=== PATIENT | male | born 1965 | race Caucasian/White ===

== ENCOUNTER 2017-03-05 11:59 | Inpatient (IN) | payer OTHER ==
[2017-03-05] VITALS (590 sets, daily range): BP systolic 114–124; BP diastolic 74–80; PULSE 49–128; TEMP 97–98; O2SAT 90–100
[~2017-03-05] VITALS: Ht 177.8 cm; Wt 91.2 kg
[2017-03-06] VITALS (755 sets, daily range): BP systolic 104–125; BP diastolic 63–81; PULSE 54–82; TEMP 97.1–98.1; O2SAT 91–100
[2017-03-06 06:05] LABS: BASO % 0.5 % (0.0-2.0); EOS # 0.1 (0.0-0.7); GRAN # 6.4 (1.4-6.5); GRAN % 76.8 % (42.2-75.2); HEMATOCRIT 41.1 % (42.0-52.0); HEMOGLOBIN 14.1 g/dl (13.5-18.0); LYMPH # 1.1 (1.2-3.4); LYMPH % 13.6 % (20.0-51.0); MEAN CELL VOLUME 89 fl (80.0-100.0); MEAN CORPUSCULAR HEMOGLOBIN 31 pg (27.0-31.0); MEAN CORPUSCULAR HGB CONC 34 g/dl (33.0-37.0); MEAN PLATELET VOLUME 9.2 fl (7.4-10.4); MONO # 0.7 (0.1-0.6); MONO % 7.9 % (1.7-9.3); PLATELET COUNT 161 K/mm3 (130-400); RED BLOOD COUNT 4.61 M/mm3 (4.20-5.60); REDCELL DISTRIBUTION WIDTH-CV 12.6 % (11.5-14.5); WHITE BLOOD COUNT 8.3 K/mm3 (4.8-10.8)
[2017-03-06 06:20] LABS: CREATININE, serum 0.91 mg/dL (0.66-1.25); POTASSIUM 3.9 mmol/L (3.4-5.0)
[2017-03-06 06:35] LABS: TROPONIN-I 0.245 ng/mL (0.000-0.034)
[2017-03-06 12:14] LABS: INR 1.1 (0.8-3.0); PROTHROMBIN TIME 11.9 SECONDS (9.7-12.8)
[2017-03-06] MEDS ORDERED: LIPITOR 40MG TA40 MG PO (14:53)
[2017-03-06] MEDS ORDERED: ASPI325T6 PO (14:53)
[2017-03-06] MEDS ORDERED: LOPRESSOR 225 MG/TAB PO (14:53)
== END 2017-03-06 15:15 | disposition short-term general hospital (02) | DRG 272 ==
LOC: IMCU 11:59 → ICU 13:51
PROVIDERS: Family Medicine; Internal Medicine Interventional Cardiology; Physician Assistant
PROC: 4A023N7 Measurement of Cardiac Sampling and Pressure, Left Heart, Percutaneous Approach (ICD-10-PCS; principal; 2017-03-05)
PROC: 5A02210 Assistance with Cardiac Output using Balloon Pump, Continuous (ICD-10-PCS; 2017-03-05)
PROC: B2111ZZ Fluoroscopy of Multiple Coronary Arteries using Low Osmolar Contrast (ICD-10-PCS; 2017-03-05)
DX: I21.4 Non-ST elevation (NSTEMI) myocardial infarction (principal); M79.662 Pain in left lower leg; I25.10 Atherosclerotic heart disease of native coronary artery without angina pectoris
CPT/HCPCS: 99223-AI; 99233-AI; 99239; C1769; C1887; C1894; J1327; J1644; J1650; J2250; J2405; J3010; Q9967

== ENCOUNTER 2019-07-01 13:00 | Outpatient (RCR) | payer OTHER ==
[2019-05-20 15:39] LABS: HEMATOCRIT 39.6 % (42.0-52.0); HEMOGLOBIN 12.7 g/dl (13.5-18.0); MEAN CELL VOLUME 90 fl (80.0-100.0); MEAN CORPUSCULAR HEMOGLOBIN 29 pg (27.0-31.0); MEAN CORPUSCULAR HGB CONC 32 g/dl (33.0-37.0); MEAN PLATELET VOLUME 8.3 fl (7.4-10.4); PLATELET COUNT 218 K/mm3 (130-400); REDCELL DISTRIBUTION WIDTH-CV 13.2 % (11.5-14.5)
[2019-05-20 15:48] LABS: ALBUMIN 3.9 gm/dL (3.5-5.0); BILIRUBIN,TOTAL 0.5 mg/dL (0.0-1.0); CREATININE, serum 0.81 (0.66-1.25); TOTAL PROTEIN 7.7 gm/dL (6.4-8.2)
[2019-05-20 16:34] VITALS: BP 105/64; PULSE 61; TEMP 98.5
[2019-05-20 16:44] VITALS: BP 118/79; PULSE 66
[2019-05-20 16:55] VITALS: BP 114/61; PULSE 61
--- NOTE | 2019-05-20 17:00 | NUR ---
Report to Julissa Infante RN who assumed care at this time.
[2019-05-20 17:05] VITALS: BP 114/61; PULSE 64
[2019-05-20 17:15] VITALS: BP 106/64; PULSE 61; TEMP 98.8
[2019-06-03 15:13] LABS: HEMATOCRIT 39.6 % (42.0-52.0); HEMOGLOBIN 12.8 g/dl (13.5-18.0); MEAN CELL VOLUME 90 fl (80.0-100.0); MEAN CORPUSCULAR HEMOGLOBIN 29 pg (27.0-31.0); MEAN CORPUSCULAR HGB CONC 32 g/dl (33.0-37.0); MEAN PLATELET VOLUME 8.5 fl (7.4-10.4); PLATELET COUNT 218 K/mm3 (130-400); RED BLOOD COUNT 4.42 M/mm3 (4.20-5.60); REDCELL DISTRIBUTION WIDTH-CV 13.2 % (11.5-14.5)
[2019-06-03 15:20] LABS: ALBUMIN 3.9 gm/dL (3.5-5.0); BILIRUBIN,TOTAL 0.8 mg/dL (0.0-1.0); CALCIUM 8.8 mg/dL (8.4-10.2); CREATININE, serum 0.77 (0.66-1.25); POTASSIUM 3.9 mmol/L (3.4-5.0); TOTAL PROTEIN 7.9 gm/dL (6.4-8.2)
[2019-06-03 16:00] VITALS: BP 110/64; PULSE 80; TEMP 99.4
[2019-06-03 16:14] VITALS: BP 102/61; PULSE 82
[2019-06-03 16:24] VITALS: BP 108/65; PULSE 83
[2019-06-03 16:35] VITALS: BP 95/62; PULSE 78
[~2019-07-01] VITALS: Ht 177.8 cm; Wt 81.2 kg
[~2019-07-01 13:00] MED LIST: ASPI325T6 PO; ASPIRIN E.C. 8181 MG PO; FOLIC ACID0.4 MG PO; IRON TABLETS325 MG PO; LIALDA 1.2 GM1.2 GM PO; LIPITOR 40MG TA40 MG PO; LIPITOR 80MG80 MG PO; LOPRESSOR 225 MG/TAB PO; PHARMASSURE ZIN50 MG PO; TOPROL XL 25MG25 MG PO
[2019-07-01 13:31] LABS: ALBUMIN 3.5 gm/dL (3.5-5.0); BILIRUBIN,TOTAL 0.6 mg/dL (0.0-1.0); CALCIUM 8.7 mg/dL (8.4-10.2); CREATININE, serum 0.71 (0.66-1.25); HEMATOCRIT 37.1 % (42.0-52.0); HEMOGLOBIN 12.1 g/dl (13.5-18.0); MEAN CELL VOLUME 89 fl (80.0-100.0); MEAN CORPUSCULAR HEMOGLOBIN 29 pg (27.0-31.0); MEAN CORPUSCULAR HGB CONC 33 g/dl (33.0-37.0); MEAN PLATELET VOLUME 8.4 fl (7.4-10.4); PLATELET COUNT 222 K/mm3 (130-400); RED BLOOD COUNT 4.15 M/mm3 (4.20-5.60); REDCELL DISTRIBUTION WIDTH-CV 14.6 % (11.5-14.5); TOTAL PROTEIN 6.9 gm/dL (6.4-8.2)
[2019-07-01 14:34] VITALS: BP 92/55; PULSE 65; TEMP 98.3
[2019-07-01 15:07] VITALS: BP 93/51; PULSE 63
== END 2019-07-01 15:39 | disposition home or self-care (01) ==
LOC: EUO 13:00
PROVIDERS: Internal Medicine Gastroenterology
DX: K51.90 Ulcerative colitis, unspecified, without complications (principal); Z79.899 Other long term (current) drug therapy
CPT/HCPCS: J1200; J2920; J7050

== ENCOUNTER 2019-08-26 12:49 | Outpatient (CLI) | payer OTHER ==
[~2019-08-26] VITALS: Ht 177.8 cm; Wt 75.8 kg
[2019-08-26] MEDS ORDERED: PREDNISONE 5MG5 MG PO (13:18)
[2019-08-26 13:19] VITALS: BP 107/66; PULSE 67; TEMP 97.6
[2019-08-26 13:19] LABS: HEMATOCRIT 42.5 % (42.0-52.0); HEMOGLOBIN 13.6 g/dl (13.5-18.0); MEAN CELL VOLUME 92 fl (80.0-100.0); MEAN CORPUSCULAR HEMOGLOBIN 29 pg (27.0-31.0); MEAN CORPUSCULAR HGB CONC 32 g/dl (33.0-37.0); MEAN PLATELET VOLUME 8.4 fl (7.4-10.4); PLATELET COUNT 238 K/mm3 (130-400); RED BLOOD COUNT 4.63 M/mm3 (4.20-5.60); REDCELL DISTRIBUTION WIDTH-CV 14.3 % (11.5-14.5)
[2019-08-26 13:28] LABS: ALBUMIN 4.3 gm/dL (3.5-5.0); BILIRUBIN,TOTAL 0.9 mg/dL (0.0-1.0); CALCIUM 9.3 mg/dL (8.4-10.2); CREATININE, serum 0.79 (0.66-1.25); POTASSIUM 4.3 mmol/L (3.4-5.0); TOTAL PROTEIN 7.8 gm/dL (6.4-8.2)
[2019-08-26 15:12] VITALS: BP 92/52; PULSE 57; TEMP 97.8
== END 2019-08-26 15:16 | disposition home or self-care (01) ==
LOC: EUO 12:49
PROVIDERS: Internal Medicine Gastroenterology
DX: K51.90 Ulcerative colitis, unspecified, without complications (principal); Z79.899 Other long term (current) drug therapy
CPT/HCPCS: J1200; J2920; J3380; J7050

== ENCOUNTER 2019-11-19 12:39 | Outpatient (CLI) | payer OTHER ==
[~2019-11-19] VITALS: Ht 177.8 cm; Wt 78.0 kg
[~2019-11-19 12:39] MED LIST changes: +PREDNISONE 5MG5 MG PO
[2019-11-19 13:13] LABS: HEMATOCRIT 40.5 % (42.0-52.0); HEMOGLOBIN 13.3 g/dl (13.5-18.0); MEAN CELL VOLUME 91 fl (80.0-100.0); MEAN CORPUSCULAR HEMOGLOBIN 30 pg (27.0-31.0); MEAN CORPUSCULAR HGB CONC 33 g/dl (33.0-37.0); MEAN PLATELET VOLUME 8.9 fl (7.4-10.4); PLATELET COUNT 204 K/mm3 (130-400); RED BLOOD COUNT 4.47 M/mm3 (4.20-5.60)
[2019-11-19 13:33] LABS: ALBUMIN 3.9 gm/dL (3.5-5.0); CALCIUM 8.9 mg/dL (8.4-10.2); CREATININE, serum 0.69 (0.66-1.25); POTASSIUM 4.8 mmol/L (3.4-5.0); TOTAL PROTEIN 7.3 gm/dL (6.4-8.2)
[2019-11-19 14:45] VITALS: BP 102/55; PULSE 52; TEMP 97.9
[2019-11-19 15:20] VITALS: BP 94/58; PULSE 55; TEMP 97.9
== END 2019-11-19 15:20 | disposition home or self-care (01) ==
LOC: EUO 12:39
PROVIDERS: Internal Medicine Gastroenterology
DX: K51.00 Ulcerative (chronic) pancolitis without complications (principal); Z79.899 Other long term (current) drug therapy
CPT/HCPCS: J1200; J2920; J3380; J7050

== ENCOUNTER 2020-01-20 13:49 | Outpatient (CLI) | payer OTHER ==
[~2020-01-20] VITALS: Ht 177.8 cm; Wt 78.3 kg
[2020-01-20 14:21] LABS: HEMATOCRIT 39.7 % (42.0-52.0); MEAN CELL VOLUME 90 fl (80.0-100.0); MEAN CORPUSCULAR HEMOGLOBIN 29 pg (27.0-31.0); MEAN CORPUSCULAR HGB CONC 33 g/dl (33.0-37.0); MEAN PLATELET VOLUME 8.6 fl (7.4-10.4); PLATELET COUNT 169 K/mm3 (130-400); RED BLOOD COUNT 4.42 M/mm3 (4.20-5.60); REDCELL DISTRIBUTION WIDTH-CV 12.6 % (11.5-14.5)
[2020-01-20 14:29] LABS: CALCIUM 8.9 mg/dL (8.4-10.2); CREATININE, serum 0.84 (0.66-1.25); POTASSIUM 3.9 mmol/L (3.4-5.0)
[2020-01-20 15:18] VITALS: BP 107/59; PULSE 55; TEMP 97.9
== END 2020-01-20 16:06 | disposition home or self-care (01) ==
LOC: EUO 13:49
PROVIDERS: Internal Medicine Gastroenterology
DX: K51.90 Ulcerative colitis, unspecified, without complications (principal); Z79.899 Other long term (current) drug therapy
CPT/HCPCS: J1200; J2920; J3380; J7050

== ENCOUNTER 2020-02-18 13:31 | Outpatient (CLI) | payer OTHER ==
--- NOTE | 2020-02-16 10:21 | NUR ---
LEFT MESSAGE IN REGARDS TO APPT TOMORROW AND ID SCREENING QUESTIONS. ENCOURAGED RETURN PHONE CALL.
[~2020-02-18] VITALS: Ht 177.8 cm; Wt 75.9 kg
[2020-02-18 14:02] LABS: HEMATOCRIT 39.4 % (42.0-52.0); HEMOGLOBIN 13.1 g/dl (13.5-18.0); MEAN CELL VOLUME 88 fl (80.0-100.0); MEAN CORPUSCULAR HEMOGLOBIN 29 pg (27.0-31.0); MEAN CORPUSCULAR HGB CONC 33 g/dl (33.0-37.0); MEAN PLATELET VOLUME 8.7 fl (7.4-10.4); PLATELET COUNT 200 K/mm3 (130-400); RED BLOOD COUNT 4.46 M/mm3 (4.20-5.60); REDCELL DISTRIBUTION WIDTH-CV 12.6 % (11.5-14.5)
[2020-02-18 14:17] LABS: ALBUMIN 3.8 gm/dL (3.5-5.0); BILIRUBIN,TOTAL 1.2 mg/dL (0.0-1.0); CALCIUM 8.8 mg/dL (8.4-10.2); CREATININE, serum 0.95 (0.66-1.25); POTASSIUM 4.1 mmol/L (3.4-5.0); TOTAL PROTEIN 6.9 gm/dL (6.4-8.2)
[2020-02-18 15:00] VITALS: BP 93/51; PULSE 58; TEMP 98.5
[2020-02-18 15:40] VITALS: BP 95/58; PULSE 52
== END 2020-02-18 15:43 | disposition home or self-care (01) ==
LOC: EUO 13:31
PROVIDERS: Internal Medicine Gastroenterology
DX: K51.90 Ulcerative colitis, unspecified, without complications (principal)
CPT/HCPCS: J1200; J2920; J3380; J7050

== ENCOUNTER 2020-03-17 13:07 | Outpatient (CLI) | payer OTHER ==
[2020-03-17 13:46] LABS: HEMATOCRIT 40.7 % (42.0-52.0); HEMOGLOBIN 13.6 g/dl (13.5-18.0); MEAN CELL VOLUME 89 fl (80.0-100.0); MEAN CORPUSCULAR HEMOGLOBIN 30 pg (27.0-31.0); MEAN CORPUSCULAR HGB CONC 33 g/dl (33.0-37.0); PLATELET COUNT 198 K/mm3 (130-400); RED BLOOD COUNT 4.58 M/mm3 (4.20-5.60); REDCELL DISTRIBUTION WIDTH-CV 12.9 % (11.5-14.5)
[2020-03-17 13:56] LABS: ALBUMIN 4.1 gm/dL (3.5-5.0); CALCIUM 8.8 mg/dL (8.4-10.2); CREATININE, serum 0.8 (0.66-1.25); POTASSIUM 4.2 mmol/L (3.4-5.0); TOTAL PROTEIN 7.4 gm/dL (6.4-8.2)
[2020-03-17 14:08] VITALS: BP 109/73; PULSE 53; TEMP 98.1
[2020-03-17 15:34] VITALS: BP 113/70; PULSE 55
--- NOTE | 2020-03-17 15:35 | NUR ---
Pt ambulates out with steady gait. IV DC'd with catheter intact, and bleeding at site controlled.
== END 2020-03-17 15:40 | disposition home or self-care (01) ==
LOC: EUO 13:07
PROVIDERS: Internal Medicine Gastroenterology
DX: K51.90 Ulcerative colitis, unspecified, without complications (principal); Z79.899 Other long term (current) drug therapy
CPT/HCPCS: J1200; J2920; J3380; J7050

== ENCOUNTER 2020-05-05 15:20 | Outpatient (CLI) | payer OTHER ==
[~2020-05-05] VITALS: Ht 177.8 cm; Wt 76.4 kg
[2020-05-05 15:57] LABS: HEMATOCRIT 41.7 % (42.0-52.0); HEMOGLOBIN 14.1 g/dl (13.5-18.0); MEAN CELL VOLUME 89 fl (80.0-100.0); MEAN CORPUSCULAR HEMOGLOBIN 30 pg (27.0-31.0); MEAN CORPUSCULAR HGB CONC 34 g/dl (33.0-37.0); PLATELET COUNT 179 K/mm3 (130-400); RED BLOOD COUNT 4.71 M/mm3 (4.20-5.60); REDCELL DISTRIBUTION WIDTH-CV 12.7 % (11.5-14.5)
[2020-05-05 15:59] LABS: ALBUMIN 4.2 gm/dL (3.5-5.0); BILIRUBIN,TOTAL 1.1 mg/dL (0.0-1.0); CALCIUM 9.1 mg/dL (8.4-10.2); CREATININE, serum 0.83 (0.66-1.25); POTASSIUM 4.1 mmol/L (3.4-5.0); TOTAL PROTEIN 7.5 gm/dL (6.4-8.2)
[2020-05-05 16:43] VITALS: BP 107/65; PULSE 52; TEMP 97.9
[2020-05-05 17:15] VITALS: BP 104/69; PULSE 57; TEMP 97.8
== END 2020-05-05 17:30 | disposition home or self-care (01) ==
LOC: EUO 15:20
PROVIDERS: Internal Medicine Gastroenterology
DX: K51.90 Ulcerative colitis, unspecified, without complications (principal); Z79.899 Other long term (current) drug therapy
CPT/HCPCS: J1200; J2920; J3380; J7050